=== PATIENT | female | born 2000 | race Caucasian/White ===

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

== ENCOUNTER 2023-08-25 05:09 | Emergency (ER) | payer MEDICAID, OTHER ==
[~2023-08-25] VITALS: Ht 172.7 cm; Wt 80.0 kg
[2023-08-25 05:10] VITALS: O2SAT 100
[2023-08-25] MEDS: SODIUM CHLORIDE 0.9% 1,000 ML IV ONE ×3 (05:15→11:19)
[2023-08-25] MEDS: LORAZEPAM 2MG/ML INJ IV ONE (05:15)
[2023-08-25 06:41] LABS: BASOPHILS % 0.4 % (0.0-2.0); HEMATOCRIT. 47.9 % (36.0-48.0); HEMOGLOBIN. 16.3 g/dL (12.0-16.0); LYMPHOCYTES % 26.6 % (20.0-50.0); MEAN CORPUSCULAR HEMOGLOBIN 31.6 pg (28.0-32.0); MEAN CORPUSCULAR HGB CONC 34.1 g/dL (31.0-37.0); MEAN CORPUSCULAR VOLUME 92.8 fL (81.0-99.0); MEAN PLATELET VOLUME 8.6 fl (7.4-10.4); MONOCYTES % 5.4 % (2.0-8.0); NEUTROPHILS % 65.6 % (40.0-76.0); PLATELET 335 x1000/uL (130-400); RED BLOOD CELL COUNT 5.16 mill/uL (4.2-5.4); RED CELL DISTRIBUTION WIDTH 13.6 % (11.6-14.6); WHITE BLOOD COUNT 8.6 x1000/uL (4.5-11.0)
[2023-08-25 06:46] LABS: CHLORIDE 105 mEq/L (98-107); POTASSIUM 3.8 mEq/L (3.5-5.1); SODIUM 140 mEq/L (136-145)
[2023-08-25 06:48] LABS: CALCIUM 9.2 mg/dL (8.7-10.4); CARBON DIOXIDE 21 mEq/L (21-32)
[2023-08-25 06:53] LABS: CREATININE 0.9 mg/dL (0.6-1.0); GLUCOSE 82 mg/dL (70-105); UREA NITROGEN BLOOD 8 mg/dL (9-23)
[2023-08-25 06:54] LABS: ETHANOL BLOOD 212 mg/dL (<10)
[2023-08-25 06:55] LABS: ACETAMINOPHEN < 2 ug/mL (10-30); ALANINE AMINOTRANSFERASE 41 IU/L (10-49); ALBUMIN 5.5 g/dL (3.2-4.8); AMMONIA < 17 uMol/L (<32); ASPARTATE AMINOTRANSFERASE 43 IU/L (<34); CREATINE KINASE 286 IU/L (34-145)
[2023-08-25 06:56] LABS: BILIRUBIN TOTAL 0.5 mg/dL (0.1-1.0); PROTEIN TOTAL 9.3 g/dL (6.0-8.3)
[2023-08-25 06:57] LABS: THYROID STIMULATING HORMONE 1.82 uIU/mL (0.55-4.78)
[2023-08-25 07:03] LABS: HCG SCREEN NEGATIVE
[2023-08-25 09:37] LABS: LACTIC ACID 2.3 mmol/L (0.4-2.0)
[2023-08-25 10:55] LABS: CLARITY URINE CLEAR (CLEAR); COLOR URINE YELLOW (YELLOW); GLUCOSE URINE NEGATIVE (NEGATIVE); KETONES URINE NEGATIVE (NEGATIVE); LEUKOCYTE ESTERASE URINE TRACE (NEGATIVE); NITRITE URINE NEGATIVE (NEGATIVE); OCCULT BLOOD URINE NEGATIVE (NEGATIVE); PH URINE 5.5 (4.5-8.0); PROTEIN URINE TRACE (NEGATIVE); SPECIFIC GRAVITY URINE 1.018 (1.005-1.030); UROBILINOGEN URINE 0.2 E.U./dL (0.2-1.0)
[2023-08-25 11:02] LABS: *AMPHETAMINES SCREEN URINE NEGATIVE (NEGATIVE); *BARBITURATES SCREEN URINE NEGATIVE (NEGATIVE); *BENZODIAZEPINES SCREEN URINE NEGATIVE (NEGATIVE); *COCAINE SCREEN URINE NEGATIVE (NEGATIVE)
[2023-08-25 11:03] LABS: CANNABINOID URINE SCREEN PRESUMPTIVE POSITIVE (NEGATIVE); ECSTASY MDMA SCREEN URINE NEGATIVE (NEGATIVE); METHADONE URINE SCREEN NEGATIVE (NEGATIVE); OPIATES URINE SCREEN NEGATIVE (NEGATIVE); PHENCYCLIDINE URINE SCREEN NEGATIVE (NEGATIVE)
[2023-08-25 11:19] LABS: BACTERIA URINE 1+; MUCUS URINE TRACE /lpf (< = 2+); SQUAMOUS EPITHELIAL CELL URINE 1+ /lpf (RARE/1+)
[2023-08-25 11:20] LABS: WBC URINE 0-2 /hpf (0-2)
[2023-08-25 11:22] LABS: RBC URINE NONE SEEN /hpf (0-2)
[2023-08-25 11:38] LABS: LACTIC ACID 2.1 mmol/L (0.4-2.0)
[2023-08-25 14:00] VITALS: BP 104/58; PULSE 92; RESP 18; TEMP 98.6
== END 2023-08-25 14:06 | disposition home or self-care (01) ==
LOC: ER 05:09
DX: T51.0X1A Toxic effect of ethanol, accidental (unintentional), initial encounter (principal); F12.10 Cannabis abuse, uncomplicated; Y92.89 Other specified places as the place of occurrence of the external cause
CPT/HCPCS: 80053; 80305; 81003; 80307; 80320; 82140; 82550; 84703; 83605; 84443; 85025; 36415; 71045; 93005; 96361; 96374; 99285; J2060; J7030; G0480

== ENCOUNTER 2024-01-06 00:46 | Emergency (ER) | payer MEDICAID ==
[~2024-01-06] VITALS: Ht 172.7 cm; Wt 78.0 kg
[2024-01-06 00:54] VITALS: TEMP 97.8; O2SAT 96
[2024-01-06 01:25] VITALS: BP 127/82; PULSE 114; RESP 20; O2SAT 100
== END 2024-01-06 01:45 | disposition home or self-care (01) ==
LOC: ER 00:52
DX: F10.129 Alcohol abuse with intoxication, unspecified (principal); F12.90 Cannabis use, unspecified, uncomplicated; Z98.890 Other specified postprocedural states; Y90.9 Presence of alcohol in blood, level not specified
CPT/HCPCS: 99283

== ENCOUNTER 2024-02-09 06:14 | Emergency (ER) | payer MEDICAID ==
[~2024-02-09] VITALS: Ht 167.6 cm; Wt 69.0 kg
[2024-02-09 06:21] VITALS: O2SAT 90
[2024-02-09 07:31] LABS: BASOPHILS % 0.7 % (0.0-2.0); EOSINOPHILS % 3.9 % (0.0-5.0); HEMATOCRIT. 43.7 % (36.0-48.0); HEMOGLOBIN. 14.7 g/dL (12.0-16.0); LYMPHOCYTES % 28.6 % (20.0-50.0); MEAN CORPUSCULAR HEMOGLOBIN 32.5 pg (28.0-32.0); MEAN CORPUSCULAR HGB CONC 33.6 g/dL (31.0-37.0); MEAN CORPUSCULAR VOLUME 96.8 fL (81.0-99.0); MEAN PLATELET VOLUME 8.5 fl (7.4-10.4); MONOCYTES % 6.4 % (2.0-8.0); NEUTROPHILS % 60.4 % (40.0-76.0); PLATELET 233 x1000/uL (130-400); RED BLOOD CELL COUNT 4.51 mill/uL (4.2-5.4); RED CELL DISTRIBUTION WIDTH 13.7 % (11.6-14.6); WHITE BLOOD COUNT 6.8 x1000/uL (4.5-11.0)
[2024-02-09 07:41] LABS: INR 1.1; PROTHROMBIN TIME 11.7 sec (9.6-11.0)
[2024-02-09 07:52] LABS: CHLORIDE 109 mEq/L (98-107); HCG SCREEN NEGATIVE; POTASSIUM 3.9 mEq/L (3.5-5.1); SODIUM 142 mEq/L (136-145)
[2024-02-09 07:53] LABS: CALCIUM 9.1 mg/dL (8.7-10.4); CARBON DIOXIDE 20 mEq/L (21-32)
[2024-02-09 07:58] LABS: CREATININE 0.7 mg/dL (0.6-1.0); GLUCOSE 79 mg/dL (70-105); UREA NITROGEN BLOOD 9 mg/dL (9-23)
[2024-02-09 08:00] LABS: ALANINE AMINOTRANSFERASE 35 IU/L (10-49); ALBUMIN 4.7 g/dL (3.2-4.8); ASPARTATE AMINOTRANSFERASE 51 IU/L (<34); BILIRUBIN TOTAL 0.4 mg/dL (0.1-1.0); PROTEIN TOTAL 7.4 g/dL (6.0-8.3)
[2024-02-09] MEDS: KETOROLAC 30MG/ML VIAL IM ONE (16:30)
[2024-02-09] MEDS: HYDROCODONE/ACETAMINOPHEN 5/325MG TABLET PO ONE (16:30)
[2024-02-09] MEDS ORDERED: LIDO700A30 TP (16:50)
[2024-02-09] MEDS ORDERED: TOPUD PO (16:50)
[2024-02-09] MEDS ORDERED: NAPR500T7 MT (16:50)
[2024-02-09 17:30] VITALS: BP 119/85; PULSE 64; RESP 17; TEMP 36.72516; O2SAT 100
== END 2024-02-09 18:03 | disposition home or self-care (01) ==
LOC: ER 06:14
DX: S20.219A Contusion of unspecified front wall of thorax, initial encounter (principal); S30.1XXA Contusion of abdominal wall, initial encounter; F10.129 Alcohol abuse with intoxication, unspecified; Y90.9 Presence of alcohol in blood, level not specified; Y08.89XA Assault by other specified means, initial encounter; Y93.89 Activity, other specified; Y92.89 Other specified places as the place of occurrence of the external cause; Y99.8 Other external cause status
CPT/HCPCS: 80053; 84703; 83690; 85025; 85610; 36415; 71045; 70450; 71250; 74176; 96372; 99285; J1885; Z7610

== ENCOUNTER 2024-03-07 03:30 | Emergency (ER) | payer MEDICAID ==
[~2024-03-07] VITALS: Ht 165.1 cm; Wt 61.0 kg
[~2024-03-07 03:30] MED LIST: LIDO700A30 TP; NAPR500T7 MT; TOPUD PO
[2024-03-07 03:33] VITALS: O2SAT 95
[2024-03-07 03:55] LABS: EOSINOPHILS % 11.9 % (0.0-5.0); HEMATOCRIT. 42.2 % (36.0-48.0); HEMOGLOBIN. 13.6 g/dL (12.0-16.0); LYMPHOCYTES % 32.6 % (20.0-50.0); MEAN CORPUSCULAR HGB CONC 32.3 g/dL (31.0-37.0); MEAN CORPUSCULAR VOLUME 96.2 fL (81.0-99.0); MEAN PLATELET VOLUME 8.5 fl (7.4-10.4); MONOCYTES % 7.8 % (2.0-8.0); NEUTROPHILS % 46.7 % (40.0-76.0); PLATELET 218 x1000/uL (130-400); RED BLOOD CELL COUNT 4.38 mill/uL (4.2-5.4); RED CELL DISTRIBUTION WIDTH 13.1 % (11.6-14.6)
[2024-03-07 04:01] LABS: CHLORIDE 109 mEq/L (98-107); POTASSIUM 3.5 mEq/L (3.5-5.1); SODIUM 142 mEq/L (136-145)
[2024-03-07 04:02] LABS: CALCIUM 9.1 mg/dL (8.7-10.4); CARBON DIOXIDE 26 mEq/L (21-32)
[2024-03-07 04:07] LABS: CREATININE 0.7 mg/dL (0.6-1.0); ETHANOL BLOOD 246 mg/dL (<10); GLUCOSE 98 mg/dL (70-105); UREA NITROGEN BLOOD 8 mg/dL (9-23)
[2024-03-07 04:09] LABS: ACETAMINOPHEN < 2 ug/mL (10-30); ALANINE AMINOTRANSFERASE 37 IU/L (10-49); ALBUMIN 4.6 g/dL (3.2-4.8); ASPARTATE AMINOTRANSFERASE 31 IU/L (<34); BILIRUBIN TOTAL 0.3 mg/dL (0.1-1.0); PROTEIN TOTAL 7.2 g/dL (6.0-8.3)
[2024-03-07 04:33] LABS: HCG SCREEN NEGATIVE
[2024-03-07 04:41] LABS: BILIRUBIN DIRECT < 0.1 mg/dL (<=3.0)
[2024-03-07 04:55] LABS: CLARITY URINE CLEAR (CLEAR); COLOR URINE YELLOW (YELLOW); GLUCOSE URINE NEGATIVE (NEGATIVE); KETONES URINE NEGATIVE (NEGATIVE); LEUKOCYTE ESTERASE URINE NEGATIVE (NEGATIVE); NITRITE URINE NEGATIVE (NEGATIVE); OCCULT BLOOD URINE NEGATIVE (NEGATIVE); PROTEIN URINE NEGATIVE (NEGATIVE); SPECIFIC GRAVITY URINE 1.006 (1.005-1.030); UROBILINOGEN URINE 0.2 E.U./dL (0.2-1.0)
[2024-03-07 05:08] LABS: *AMPHETAMINES SCREEN URINE NEGATIVE (NEGATIVE); *BARBITURATES SCREEN URINE NEGATIVE (NEGATIVE); *BENZODIAZEPINES SCREEN URINE NEGATIVE (NEGATIVE); *COCAINE SCREEN URINE NEGATIVE (NEGATIVE); METHADONE URINE SCREEN NEGATIVE (NEGATIVE)
[2024-03-07 05:09] LABS: CANNABINOID URINE SCREEN PRESUMPTIVE POSITIVE (NEGATIVE); ECSTASY MDMA SCREEN URINE NEGATIVE (NEGATIVE); OPIATES URINE SCREEN NEGATIVE (NEGATIVE); PHENCYCLIDINE URINE SCREEN NEGATIVE (NEGATIVE)
[2024-03-07] MEDS ORDERED: AMLODIPINE 5MG TABLET PO SCH (05:45)
[2024-03-07] MEDS ORDERED: DIVALPROEX SODIUM 500MG DR TABLET PO SCH ×2 (09:00→21:00)
[2024-03-07] MEDS ORDERED: LISINOPRIL 20MG TABLET PO SCH (09:00)
[2024-03-07] MEDS ORDERED: LABETALOL HCL 100MG TABLET PO ONE (09:00)
[2024-03-07] MEDS: SODIUM CHLORIDE 0.9% 1,000 ML IV ONE (16:15)
[2024-03-07] MEDS: ONDANSETRON HCL 4MG/2ML INJ IV ONE (16:45)
[2024-03-07] MEDS: PANTOPRAZOLE SODIUM 40 MG/VIAL IV ONE (16:45)
[2024-03-07 17:13] VITALS: BP 111/66; PULSE 80; RESP 16; TEMP 37.11408; O2SAT 96
[2024-03-07] MEDS ORDERED: ONDA4TAB50 MT (17:44)
[2024-03-07] MEDS ORDERED: TOPUD MT (17:44)
[2024-03-07] MEDS ORDERED: PANT40SU MT (17:44)
[2024-03-07] MEDS ORDERED: QUETIAPINE FUMARATE 50MG TABLET PO SCH (21:00)
== END 2024-03-07 17:59 | disposition home or self-care (01) ==
LOC: ER 03:30
DX: R45.851 Suicidal ideations (principal); F12.10 Cannabis abuse, uncomplicated; Z20.822 Contact with and (suspected) exposure to COVID-19
CPT/HCPCS: 80076; 80305; 80048; 81003; 80307; 80329; 80320; 84703; 85025; 36415; 96361; 96374; 96375; 99285; 87426; J2405; J2470; J7030; Z7610 ×2; G0480

== ENCOUNTER 2024-05-18 00:35 | Emergency (ER) | payer MEDICAID ==
[~2024-05-18] VITALS: Ht 167.6 cm; Wt 79.0 kg
[~2024-05-18 00:35] MED LIST changes: +NAPR-1486 MT; -NAPR500T7 MT; +ONDA4TAB50 MT; +PANT40SU MT; +TOPUD MT
[2024-05-18 00:39] VITALS: O2SAT 98
[2024-05-18 01:15] LABS: BASOPHILS % 0.4 % (0.0-2.0); EOSINOPHILS % 1.5 % (0.0-5.0); HEMATOCRIT. 40.5 % (36.0-48.0); HEMOGLOBIN. 13.7 g/dL (12.0-16.0); LYMPHOCYTES % 26.1 % (20.0-50.0); MEAN CORPUSCULAR HEMOGLOBIN 31.8 pg (28.0-32.0); MEAN CORPUSCULAR HGB CONC 33.8 g/dL (31.0-37.0); MEAN PLATELET VOLUME 8.8 fl (7.4-10.4); PLATELET 259 x1000/uL (130-400); RED BLOOD CELL COUNT 4.31 mill/uL (4.2-5.4); WHITE BLOOD COUNT 11.4 x1000/uL (4.5-11.0)
[2024-05-18] MEDS: HALOPERIDOL LACTATE 5MG/ML VIAL IM STA (01:15)
[2024-05-18] MEDS: LORAZEPAM 2MG/ML INJ IM STA (01:15)
[2024-05-18] MEDS: DIPHENHYDRAMINE 50MG/ML VIAL IM STA (01:15)
[2024-05-18 01:24] LABS: CHLORIDE 104 mEq/L (98-107); POTASSIUM 3.9 mEq/L (3.5-5.1); SODIUM 139 mEq/L (136-145)
[2024-05-18 01:25] LABS: CALCIUM 9.3 mg/dL (8.7-10.4); CARBON DIOXIDE 25 mEq/L (21-32)
[2024-05-18 01:30] LABS: CREATININE 0.8 mg/dL (0.6-1.0); GLUCOSE 81 mg/dL (70-105); UREA NITROGEN BLOOD 9 mg/dL (9-23)
[2024-05-18 01:31] LABS: ETHANOL BLOOD 244 mg/dL (<10)
[2024-05-18 01:32] LABS: CLARITY URINE CLOUDY (CLEAR); COLOR URINE YELLOW (YELLOW); GLUCOSE URINE NEGATIVE (NEGATIVE); KETONES URINE NEGATIVE (NEGATIVE); LEUKOCYTE ESTERASE URINE TRACE (NEGATIVE); NITRITE URINE NEGATIVE (NEGATIVE); OCCULT BLOOD URINE NEGATIVE (NEGATIVE); PH URINE 5.5 (4.5-8.0); PROTEIN URINE 1+ (NEGATIVE); UROBILINOGEN URINE 0.2 E.U./dL (0.2-1.0)
[2024-05-18 01:32] LABS: ACETAMINOPHEN < 2 ug/mL (10-30)
[2024-05-18 01:39] LABS: *AMPHETAMINES SCREEN URINE NEGATIVE (NEGATIVE); *BARBITURATES SCREEN URINE NEGATIVE (NEGATIVE); *BENZODIAZEPINES SCREEN URINE NEGATIVE (NEGATIVE); *COCAINE SCREEN URINE NEGATIVE (NEGATIVE); CANNABINOID URINE SCREEN PRESUMPTIVE POSITIVE (NEGATIVE); METHADONE URINE SCREEN NEGATIVE (NEGATIVE); OPIATES URINE SCREEN NEGATIVE (NEGATIVE); PHENCYCLIDINE URINE SCREEN NEGATIVE (NEGATIVE)
[2024-05-18 01:40] LABS: ECSTASY MDMA SCREEN URINE NEGATIVE (NEGATIVE)
[2024-05-18 03:43] LABS: SQUAMOUS EPITHELIAL CELL URINE 1+ /lpf (RARE/1+)
[2024-05-18 03:44] LABS: BACTERIA URINE 1+; RBC URINE 0-2 /hpf (0-2)
[2024-05-18 16:05] VITALS: BP 105/55; PULSE 82; RESP 14; TEMP 36.78072; O2SAT 98
== END 2024-05-18 19:03 | disposition short-term general hospital (02) ==
LOC: ER 00:50
DX: R45.851 Suicidal ideations (principal); F32.9 Major depressive disorder, single episode, unspecified; F12.90 Cannabis use, unspecified, uncomplicated; Z20.822 Contact with and (suspected) exposure to COVID-19; Z79.1 Long term (current) use of non-steroidal anti-inflammatories (NSAID); Z79.899 Other long term (current) drug therapy
CPT/HCPCS: 80305; 80048; 81003; 80307; 80329; 80320; 85025; 36415; 96372; 99285; 87426; J1200; J1630; J2060; Z7610; G0480

== ENCOUNTER 2024-12-26 10:23 | Emergency (ER) | payer MEDICAID ==
[~2024-12-26] VITALS: Ht 167.6 cm; Wt 68.0 kg
[2024-12-26 10:31] VITALS: O2SAT 100
[2024-12-26 11:21] LABS: BASOPHILS % 0.6 % (0.0-2.0); EOSINOPHILS % 2.3 % (0.0-5.0); HEMATOCRIT. 39.6 % (36.0-48.0); HEMOGLOBIN. 13.4 g/dL (12.0-16.0); LYMPHOCYTES % 26.0 % (20.0-50.0); MEAN PLATELET VOLUME 8.8 fl (7.4-10.4); MONOCYTES % 8.3 % (2.0-8.0); NEUTROPHILS % 62.8 % (40.0-76.0); PLATELET 241 x1000/uL (130-400); RED BLOOD CELL COUNT 4.40 mill/uL (4.2-5.4); RED CELL DISTRIBUTION WIDTH 13.5 % (11.6-14.6)
[2024-12-26 11:43] LABS: CREATININE 0.9 mg/dL (0.6-1.0); UREA NITROGEN BLOOD 14 mg/dL (9-23)
[2024-12-26 11:51] LABS: HCG SCREEN NEGATIVE
[2024-12-26 12:49] VITALS: BP 129/80; PULSE 79; RESP 18; TEMP 37; O2SAT 99
== END 2024-12-26 12:50 | disposition home or self-care (01) ==
LOC: ER 10:23
DX: F41.9 Anxiety disorder, unspecified (principal); Z79.1 Long term (current) use of non-steroidal anti-inflammatories (NSAID); Z79.899 Other long term (current) drug therapy
CPT/HCPCS: 36415; 80048; 84703; 85025; 93005; 99284